=== PATIENT | male | born 1970 ===

== ENCOUNTER 2017-11-24 10:11 | Outpatient (CLI) | payer OTHER ==
[~2017-11-24] VITALS: Ht 182.9 cm; Wt 81.6 kg
[2017-11-24] MEDS ORDERED: FLONASE16 GM NASAL (11:03)
== END 2017-11-24 10:25 | disposition home or self-care (01) ==
LOC: OFIC 805 10:11
DX: J31.0 Chronic rhinitis (principal); H70.11 Chronic mastoiditis, right ear; H61.23 Impacted cerumen, bilateral

== ENCOUNTER 2018-07-27 10:10 | Outpatient (CLI) | payer OTHER ==
[~2018-07-27] VITALS: Ht 182.9 cm; Wt 81.6 kg
[~2018-07-27 10:10] MED LIST: FLONASE16 GM NASAL
[2018-07-27] MEDS ORDERED: FLONASE16 GM NASAL (12:30)
[2018-07-27] MEDS ORDERED: ZYRTEC10 MG PO (12:30)
== END 2018-07-27 10:30 | disposition home or self-care (01) ==
LOC: OFIC 805 10:10
DX: J31.0 Chronic rhinitis (principal); H70.11 Chronic mastoiditis, right ear; H61.21 Impacted cerumen, right ear; H71.01 Cholesteatoma of attic, right ear

== ENCOUNTER 2019-03-22 08:51 | Outpatient (CLI) | payer OTHER ==
[~2019-03-22] VITALS: Ht 182.9 cm; Wt 81.6 kg
[~2019-03-22 08:51] MED LIST changes: +ZYRTEC10 MG PO
[2019-03-22] MEDS ORDERED: ZYRTEC10 MG PO (10:09)
[2019-03-22] MEDS ORDERED: FLONASE16 GM NASAL (10:09)
== END 2019-03-22 12:50 | disposition home or self-care (01) ==
LOC: OFIC 805 08:51
DX: J31.0 Chronic rhinitis (principal); H61.23 Impacted cerumen, bilateral; H70.11 Chronic mastoiditis, right ear; H71.01 Cholesteatoma of attic, right ear

== ENCOUNTER 2019-04-21 08:38 | Outpatient (CLI) | payer OTHER ==
[~2019-04-21] VITALS: Ht 182.9 cm; Wt 81.6 kg
== END 2019-04-21 12:45 | disposition home or self-care (01) ==
LOC: OFIC 805 08:38
DX: H70.11 Chronic mastoiditis, right ear (principal); H61.23 Impacted cerumen, bilateral; H71.01 Cholesteatoma of attic, right ear

== ENCOUNTER 2019-11-14 09:13 | Outpatient (CLI) | payer OTHER ==
[2019-11-14] MEDS ORDERED: SINGULAIR 10MG10 MG PO (11:36)
[2019-11-14] MEDS ORDERED: DYMISTA NASAL S23 GM NASAL (11:36)
[2019-11-14] MEDS ORDERED: ZYRTEC10 MG PO (11:37)
== END 2019-11-14 11:42 | disposition home or self-care (01) ==
LOC: OFIC 805 09:13
DX: J31.0 Chronic rhinitis (principal); H61.21 Impacted cerumen, right ear; H71.01 Cholesteatoma of attic, right ear

== ENCOUNTER → 2020-07-10 | Outpatient (CLI) | payer OTHER ==
[~2020-07-10] MED LIST changes: +DYMISTA NASAL S23 GM NASAL; +SINGULAIR 10MG10 MG PO
== END | disposition home or self-care (01) ==
LOC: OFIC 805 11:00
PROVIDERS: ATTEND Otolaryngology
DX: H90.11 Conductive hearing loss, unilateral, right ear, with unrestricted hearing on the contralateral side (principal); H61.23 Impacted cerumen, bilateral; H90.71 Mixed conductive and sensorineural hearing loss, unilateral, right ear, with unrestricted hearing on the contralateral side

== ENCOUNTER → 2022-07-23 12:25 | Outpatient (CLI) | payer OTHER | END | disposition home or self-care (01) | LOC: LAB 12:25 | PROVIDERS: ATTEND Urology | DX: R97.20 Elevated prostate specific antigen [PSA] (principal) ==

== ENCOUNTER 2022-08-21 07:10 | Outpatient (CLI) | payer OTHER | END 2022-08-21 07:18 | disposition home or self-care (01) | LOC: SONOGRAMA 07:10 | PROVIDERS: ATTEND Urology | DX: D29.1 Benign neoplasm of prostate (principal); N41.1 Chronic prostatitis; R97.20 Elevated prostate specific antigen [PSA] ==